=== PATIENT | male | born 1980 | race Caucasian/White ===

== ENCOUNTER 2023-08-22 08:42 | Emergency (ER) | payer OTHER ==
[2023-08-22] MEDS ORDERED: ACETAMINOPHEN 325 MG TABLET (FP) PO ONE (08:52)
[2023-08-22 09:17] VITALS: BP 155/106; PULSE 83; RESP 17; TEMP 97.8; BMI 25.7
[2023-08-22] MEDS ORDERED: ACETAMINOPHEN 325 MG TABLET (FP) ONE (09:20)
== END 2023-08-22 10:03 | disposition home or self-care (01) ==
LOC: FER 08:42
DX: R51.9 Headache, unspecified (principal); I10 Essential (primary) hypertension
CPT/HCPCS: 70450-TC; 99284-25